=== PATIENT | male | born 1970 | race Caucasian/White ===

== ENCOUNTER → 2019-11-18 | Day surgery (SDC) | payer OTHER ==
[2019-11-16 13:07] VITALS: BMI 34.4
[~2019-11-18] MED LIST: ACETAMINOPHEN TAB 325 MG TAB PO ONE; BUPIVACAINE (PF) 0.25% 30 ML VIAL SQ ONE; DEXAMETHASONE SOD PHOSPHATE 10 MG/ML 1 ML VIAL IV ONE; HEPARIN SODIUM,PORCINE 5,000 UNIT/ML 1 ML VIAL SQ ONE; HYDROcodone/APAP 5-325MG 1 EACH TAB PO PRN; HYDROmorphone 0.5 MG/0.5 ML SYRINGE IVP PRN; LACTATED RINGERS 1,000 ML IV SCH; LIDOCAINE 1% (10MG/ML) FOR IV START INTRADERMA PRN; MIDAZOLAM 2 MG/2 ML VIAL IV PRN; MIDAZOLAM 2 MG/2 ML VIAL ONE; NALOXONE 0.4 MG/ML 1 ML VIAL IV PRN; ONDANSETRON 4 MG/2 ML VIAL IVP ONE; PROPOFOL 10 MG/ML 20 ML VIAL IV ONE; Pre Op ABX Message 1 EACH MISC MISCELLANE ONE; SODIUM CHLORIDE 0.9% 100 ML with ceFAZolin 2,000 MG IV ONE; fentaNYL (PF) 50 MCG/ML 2 ML AMP ONE
--- NOTE | 2019-11-18 13:01 | P.GSHP ---
History of Present Illness H&P Date: 11/18/19 Chief Complaint: Lipomas 48-year-old male presents today for elective excision multiple lipomas. Has one in the left mid back and also 4-5 left upper arm. Complaining of pain. These are increasing in size. No history of previous biopsies or excisions. No numbness or tingling. Past Medical History Past Medical History: Hyperlipidemia History of Any Multi-Drug Resistant Organisms: None Reported Past Surgical History: Orthopedic Surgery Additional Past Surgical History / Comment(s): knee surg. Past Anesthesia/Blood Transfusion Reactions: No Reported Reaction Smoking Status: Former smoker - Past Family History Mother Family Medical History: No Reported History Medications and Allergies Home Medications Medication Instructions Recorded Confirmed Type No Known Home Medications 11/16/19 11/18/19 History Allergies Allergy/AdvReac Type Severity Reaction Status Date / Time No Known Allergies Allergy Verified 11/18/19 11:17 Surgical - Exam Vital Signs Temp Pulse Resp BP Pulse Ox 98 F 70 16 140/83 96 11/18/19 11:36 11/18/19 11:36 11/18/19 11:36 11/18/19 11:36 11/18/19 11:36 Physical exam: General: Well-developed, well-nourished HEENT: Normocephalic, sclerae nonicteric Abdomen: Nontender, nondistended Extremities: No edema, left mid back lipoma measuring 4-5 cm in diameter, multiple left upper arm lipomas largest measuring 3-3.5 cm Neuro: Alert and oriented Assessment and Plan (1) Lipoma of back Narrative/Plan: Will proceed with surgical excision multiple lipomas at this time. Risks of bleeding, infection, recurrence reviewed. He understands and wishes to proceed. Current Visit: Yes Status: Acute Code(s): D17.1 - BENIGN LIPOMATOUS NEOPLASM OF SKIN, SUBCU OF TRUNK SNOMED Code(s): 547310933
--- NOTE | 2019-11-18 14:44 | P.OP ---
Date of Procedure: 11/18/19 Procedure(s) Performed: PREOPERATIVE DIAGNOSIS: Left back lipoma, left upper arm lipomas POSTOPERATIVE DIAGNOSIS: Same PROCEDURE: Excision with intermediate closure SURGEON: Taniya EBL: Frank Rodgers ANESTHESIA: General COMPLICATIONS: None OPERATIVE PROCEDURE: She placed in the supine position. The left upper arm was prepped and draped sterilely. The patient had 4 lipomas there. Sizes were 2.4, 2.3, 2.3, 2.0. These were excised using electrocautery and blunt dissection. Intermediate closure then took place for a total length of 8 cm. The saphenous tissues were closed at those incision sites using interrupted 3-0 Vicryl sutures and the skin using interrupted 4-0 Monocryl sutures. Skin glue and sterile dressings were applied. The patient was then placed in the right decubitus position. The left back was prepped and draped sterilely. A low horizontal incision was made overlying the palpable mass. The subcutaneous tissues were divided using electrocautery. This mass was present in the subfascial location. This measured 3.0 x 4.0 centimeter. This was sent to pathology. The fascia was reapproximated using Vicryl sutures. The saphenous tissues were closed using Vicryl sutures. The skin was closed using a running 4-0 Monocryl stitch. Skin glue and sterile dressings were applied. Intermediate closure length at that location 3.5 cm DISPOSITION: Stable to recovery room
[2019-11-18 14:49] VITALS: TEMP 98.5
[2019-11-18 15:49] VITALS: BP 125/81
[2019-11-18 15:57] VITALS: PULSE 92; RESP 16
== END ==
LOC: OR 11:01
PROVIDERS: ATTEND Surgery
DX: D17.22 Benign lipomatous neoplasm of skin and subcutaneous tissue of left arm (principal); D17.1 Benign lipomatous neoplasm of skin and subcutaneous tissue of trunk; E78.5 Hyperlipidemia, unspecified; E66.9 Obesity, unspecified; Z87.891 Personal history of nicotine dependence; Z68.32 Body mass index [BMI] 32.0-32.9, adult; Z98.890 Other specified postprocedural states
CPT/HCPCS: 88304; 21932; 24075 ×4; J2250; J1644; J1100; J2405; J0690; J3010; J2704

== ENCOUNTER 2022-09-30 10:01 | Day surgery (SDC) | payer OTHER ==
[2022-09-25 12:00] VITALS: BMI 32.8
[~2022-09-30 10:01] MED LIST changes: -ACETAMINOPHEN TAB 325 MG TAB PO ONE; -BUPIVACAINE (PF) 0.25% 30 ML VIAL SQ ONE; -DEXAMETHASONE SOD PHOSPHATE 10 MG/ML 1 ML VIAL IV ONE; -HEPARIN SODIUM,PORCINE 5,000 UNIT/ML 1 ML VIAL SQ ONE; -HYDROcodone/APAP 5-325MG 1 EACH TAB PO PRN; -HYDROmorphone 0.5 MG/0.5 ML SYRINGE IVP PRN; -MIDAZOLAM 2 MG/2 ML VIAL IV PRN; -MIDAZOLAM 2 MG/2 ML VIAL ONE; -NALOXONE 0.4 MG/ML 1 ML VIAL IV PRN; -ONDANSETRON 4 MG/2 ML VIAL IVP ONE; -PROPOFOL 10 MG/ML 20 ML VIAL IV ONE; -Pre Op ABX Message 1 EACH MISC MISCELLANE ONE; -SODIUM CHLORIDE 0.9% 100 ML with ceFAZolin 2,000 MG IV ONE; -fentaNYL (PF) 50 MCG/ML 2 ML AMP ONE
[2022-09-30 10:45] VITALS: RESP 16; TEMP 97
[2022-09-30] MEDS ORDERED: LIDOCAINE 2% INJ 20 MG/ML (2 ML VIAL) ONE (11:17)
[2022-09-30] MEDS ORDERED: PROPOFOL 10 MG/ML 20 ML VIAL IV ONE (11:17)
--- NOTE | 2022-09-30 11:29 | P.PCN ---
Date of Procedure: 09/30/22 Procedure(s) Performed: BRIEF HISTORY: Patient is a 51-year-old pleasant white male scheduled for an elective colonoscopy as a part of screening for colon cancer. PROCEDURE PERFORMED: Colonoscopy. PREOPERATIVE DIAGNOSIS: Screening for colon cancer. IV sedation per Anesthesia. PROCEDURE: After informed consent was obtained, the patient, was brought into the endoscopy unit. IV sedation was administered by Anesthesia under continuous monitoring. Digital rectal examination was normal. Initially the Olympus CF-160 flexible video colonoscope was then inserted in the rectum, gradually advanced into the cecum without any difficulty. Careful examination was performed as the scope was gradually being withdrawn. Ileocecal valve and the appendiceal orifice were visualized and appeared normal. Prep was excellent. Mucosa of the cecum, ascending colon, transverse colon, descending colon, sigmoid colon, and rectum appeared normal. Early scattered sigmoid diverticula Retroflexion was performed in the rectum and no lesions were seen. The patient tolerated the procedure well. IMPRESSION: Normal-appearing colon from rectum to cecum with no evidence of colorectal neoplasia . Early scattered sigmoid diverticulosis. RECOMMENDATIONS: Findings of this examination were discussed with the patient as well as his family. He was advised to have a repeat screening colonoscopy in 10 years.
[2022-09-30 11:38] VITALS: PULSE 75
[2022-09-30 11:47] VITALS: BP 125/79
== END 2022-09-30 12:17 | disposition home or self-care (01) ==
LOC: ORWHC2ENDO 10:01
PROVIDERS: ATTEND Internal Medicine Gastroenterology
DX: Z12.11 Encounter for screening for malignant neoplasm of colon (principal); K57.30 Diverticulosis of large intestine without perforation or abscess without bleeding
CPT/HCPCS: 45378; J2704; J2001; G0121